=== PATIENT | male | born 1960 | race Caucasian/White ===

== ENCOUNTER 2016-07-23 14:19 | Inpatient (IN) | payer BC ==
[2016-07-23] MEDS ORDERED: IOPAMIDOL 300 (61%) 100 ML VIAL IV ONE (14:20)
[2016-07-23] MEDS ORDERED: ONDANSETRON 4 MG/2ML 2 ML VIAL ONE (14:54)
[2016-07-23] MEDS ORDERED: HYDROMORPHONE HCL 1 MG/ML SYRINGE ONE (14:54)
[2016-07-23] MEDS ORDERED: LACTATED RINGERS 1,000 ML ONE (14:54)
[2016-07-23 15:07] LABS: ABSOLUTE NEUTROPHIL COUNT 10.7 K/mm3 (1.8-7.7); BASO % 0.2 % (0.2-1.0); EOS # 0.1 (0.0-0.5); EOS % 0.4 % (0.9-2.9); HEMATOCRIT 44.1 % (32.0-52.0); HEMOGLOBIN 14.1 gm/l (14.0-18.0); IMM NEUT% 0.3 % (0-1); LYMPH # 1.7 (1.0-4.8); LYMPH % 12.9 % (15-45); MEAN CELL VOLUME 92.6 fl (80.0-94.0); MEAN CORPUSCULAR HEMOGLOBIN 29.6 pg (27.0-31.0); MONO # 0.9 (0.0-0.8); MONO % 6.5 % (4-12); NEUT % 79.7 % (43-75); PLATELET COUNT 194 K/mm3 (130-400); RED CELL DISTRIBUTION WIDTH 12.8 % (11.5-14.5)
[2016-07-23 15:08] LABS: URINE BILIRUBIN NEGATIVE (NEGATIVE); URINE BLOOD NEGATIVE (NEGATIVE); URINE GLUCOSE (UA) NEGATIVE (NEGATIVE); URINE LEUKOCYTE ESTERASE NEGATIVE (NEGATIVE); URINE NITRITE NEGATIVE (NEGATIVE); URINE PROTEIN NEGATIVE (NEGATIVE); URINE UROBILINOGEN NORMAL (0-1 mg/dl)
[2016-07-23 15:11] LABS: URINE APPEARANCE CLEAR; URINE COLOR YELLOW
[2016-07-23 15:16] LABS: ALB/GLOB RATIO 1.5 (>1.0); ALBUMIN 4.2 gm/dL (3.5-5.7)
--- NOTE | 2016-07-23 15:47 | CT ---
Exam Type: ABD/PELVIS W/ CON Date and Time: 07/23/2016 3:06 PM Clinical information: Lower abdominal pain. Comparison: None Procedure: Imaging device: Lookback Aquilion [address] scanner 1 mm axial images were obtained through the abdomen and pelvis. Stacked reconstructed 3, 4 and 5 mm images were photographed in the axial coronal and sagittal planes. No oral contrast was utilized for this examination. 100 ml of Isovue-300 was injected intravenously. Exam: with intravenous contrast. FINDINGS: Lung bases: Linear bibasilar atelectasis or scarring is present. No effusion or pneumothorax is seen. Liver: the liver is homogeneous with no discrete abnormality visualized. No definite findings of biliary dilatation are observed. Spleen: The spleen is homogeneous and does not appear to be enlarged. Gallbladder: Normal without enlargement or evidence of adjacent inflammatory changes. Pancreas: Normal without enlargement or evidence of adjacent inflammatory changes. Adrenal glands: There is a 2.6 cm right adrenal mass identified with an indeterminate Hounsfield attenuation value of 36 Hounsfield units. The left adrenal gland is unremarkable. Abdominal aorta: The aorta is of normal caliber and appears to be without significant atherosclerotic disease. Kidneys: There is evidence of a 4 mm right-sided intrarenal calculus. The kidneys appear to enhance symmetrically. No ureteral calculus or evidence of hydronephrosis is visualized. Bowel structures: Distal colonic diverticulosis is identified with prominent mesenteric inflammatory stranding adjacent to the midportion of the sigmoid colon most consistent with focal diverticulitis. There is a small focus of air within the mesentery of the central pelvis, seen on image 92 suggesting diverticular rupture. No focal fluid collection is currently visualized. No evidence of obstruction is seen. Appendix: The appendix is well-visualized and appears to be of normal caliber. No periappendiceal inflammatory changes or CT findings of appendicitis are currently observed. Bladder: There is circumferential thickening of the bladder wall which may reflect an underlying component of cystitis. Hernia: A fat filled umbilical hernia is present. Adenopathy: No significant enlarged adenopathy is visualized. Osseous structures: Lumbar degenerative changes are present, particularly at L4-5 and L5-S1. Pelvic structures: No discrete pelvic abnormalities are visualized in this examination. IMPRESSION: 1. Distal colonic diverticulosis with focal inflammatory stranding adjacent to the mid sigmoid colon most consistent with diverticulitis. A small focus of free air is seen within the central pelvic mesentery consistent with diverticular rupture. No current focal fluid collection is visualized. 2. A normal appearance of the appendix without CT evidence of appendicitis. 3. Circumferential thickening of the bladder wall which may reflect an underlying component of cystitis. 4. An indeterminate 2.6 cm right adrenal mass. Dedicated unenhanced imaging is recommended on a nonemergent basis. 5. Lumbar degenerative changes at L4-5 and L5-S1. 6. A 4 mm right-sided intrarenal calculus.
[2016-07-23] MEDS ORDERED: METRONIDAZOLE 500 MG/NS 100 ML 100 ML IV ONE (15:53)
[2016-07-23] MEDS ORDERED: CIPROFLOXACIN IV 400 MG 200 ML IV ONE (15:53)
[2016-07-23 16:22] VITALS: BMI 31.3
[2016-07-23] MEDS ORDERED: MENTHOL/CETYLPYRD 1 EACH LOZENGE PO PRN (16:57)
[2016-07-23] MEDS ORDERED: MAGNESIUM HYDROXIDE 30 ML UDCUP PO PRN (16:57)
[2016-07-23] MEDS ORDERED: SODIUM CHLORIDE 0.9% 100 ML IV PRN (16:57)
[2016-07-23] MEDS ORDERED: BISACODYL 10 MG SUP PR PRN (16:57)
[2016-07-23] MEDS ORDERED: ACETAMINOPHEN 325 MG TABLET PO PRN (16:57)
[2016-07-23] MEDS ORDERED: BISACODYL 5 MG TABLET.EC PO PRN (16:57)
[2016-07-23] MEDS ORDERED: BLISTEX LIPSTICK 1 EACH TP PRN (16:57)
[2016-07-23] MEDS ORDERED: PUMP TUBING ONE (17:16)
[2016-07-23] MEDS: SODIUM CHLORIDE 0.9% 1,000 ML IV SCH ×2 (17:17→23:54)
[2016-07-23] MEDS: MORPHINE SULFATE 2 MG/ML SYRINGE IV PRN (17:31)
[2016-07-23] MEDS: CIPROFLOXACIN IV 400 MG 400 MG in Premix (D5W) 200 ml 1 EACH IV SCH (17:33)
--- NOTE | 2016-07-23 17:54 | HP ---
RAJAT KAUR : 1960 DATE OF ADMISSION: July 23, 2016 CHIEF COMPLAINT: Abdominal pain. 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 He said he felt like he was being kicked in his lower abdomen. He developed some shortness of breath with that and some nausea, no vomiting. The pain progressed overnight, but as he had to make a delivery of bees, he continued working and he made his delivery of bees. He said the pain worsened while he was driving around on the [employer] and getting in and out of his truck. After the delivery, he presented to the emergency department. He did have the chills last night but no fevers, no vomiting. His bowel movement was difficult and that it required a lot of straining but no diarrhea or constipation. Then with today's pain, urination has been more difficult for him. Patient had a colonoscopy in July of 2015 that showed diverticulosis. REVIEW OF SYSTEMS: GENERAL: Chills. EENT: No congestion or sore throat. CARDIOVASCULAR: No chest pain or pressure. RESPIRATORY: Shortness of breath due to pain, no coughing. No dyspnea on exertion. ABDOMEN: Abdominal pain, nausea. No vomiting or diarrhea. GENITOURINARY: Difficulty initiating stream due to pain. No burning or urgency. MUSCULOSKELETAL: No muscle aches or pains. NEUROLOGIC: No headache or lightheadedness. He has tingling in his fingers. PAST MEDICAL HISTORY: Includes: 1. Hyperlipidemia. 2. Sleep apnea. 3. Gout. PAST SURGICAL HISTORY: None. ALLERGIES: NONE. MEDICATIONS: 1. Allopurinol. 2. Zetia. FAMILY MEDICAL HISTORY: Includes diabetes in his father. Depression and heart disease. 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 Occasional glass of wine. Denies any alcohol, tobacco or marijuana. PHYSICAL EXAM: GENERAL: He is alert and oriented, in no acute distress. Morbidly obese. VITAL SIGNS: Temperature 98.9, heart rate 89, blood pressure 120/65. He is saturating 95% on room air. HEENT: Normocephalic, atraumatic. There is no tenderness to palpation. Mucous membranes moist. Pupils are equal, round and reactive. His extraocular muscles are intact. There is no scleral icterus or conjunctival injection. NECK: Supple. Trachea midline. CARDIOVASCULAR: Regular. Positive S1, S2. Palpable pulses bilaterally radially and posterior tibial. No peripheral edema. RESPIRATORY: Clear to auscultation bilaterally. No rhonchi or wheezing. ABDOMEN: Distended, decreased bowel sounds. Tender lower quadrants. There is voluntary guarding. No rebound, no involuntary guarding. MUSCULOSKELETAL: Moving all extremities without difficulty. They are nontender. NEUROLOGIC: He is alert and oriented. LABORATORIES: Sodium 135, potassium 2.7, chloride 101, carbon dioxide 24, BUN 17, creatinine 1.0, glucose 227, total bilirubin 2.4, AST 23, ALT 29, alkaline phosphatase 60, lipase 35. White blood cell count of 13.4, hemoglobin 14.1, hematocrit of 44.1 with a platelet count of 194. Urinalysis was obtained. It was yellow, clear, and negative for protein, glucose, ketones, nitrites, leukocyte esterase. DIAGNOSTIC IMAGING: Abdomen and pelvis CT was obtained. It showed distal colonic diverticulosis with focal inflammatory stranding adjacent to mid sigmoid colon consistent with diverticulitis. Small focus of free air seen within central pelvic mesentery consistent with diverticular rupture. No current focal fluid collection visualized. Normal appearance of appendix. Circumferential thickening of bladder wall which may reflect underlying component of cystitis and an indeterminate 2.6 cm right adrenal mass. Dedicated imaging recommended. Lumbar degenerative changes at L4/L5, L5/S1. A 4 mm right-sided renal calculus. ASSESSMENT: A 55-year-old male with acute onset of abdominal pain and chills found to have diverticulitis with a small perforation on CT. PLAN: 1. Diverticulitis. Surgery consult has been placed and we will monitor overnight for worsening conditions which may warrant surgical investigation. He will be nothing by mouth receiving Flagyl and Cipro and IV fluid hydration. 2. Hyperlipidemia. We will hold his Zetia. 3. Gout. We will hold his allopurinol. Cc: Sharifa Bello M.D.
[2016-07-23] MEDS ORDERED: ONDANSETRON 4 MG/2ML 2 ML VIAL IV PRN (21:00)
[2016-07-23] MEDS ORDERED: CIPROFLOXACIN 500 MG TABLET PO SCH (21:00)
[2016-07-23] MEDS: DOCUSATE SODIUM 100 MG CAPSULE PO SCH (22:03)
[2016-07-24] MEDS: METRONIDAZOLE 500 MG/NS 100 ML 500 MG in Premix (NS) 100 ml 1 EACH IV SCH ×3 (01:34→16:46)
[2016-07-24] MEDS: MORPHINE SULFATE 2 MG/ML SYRINGE IV PRN (01:39)
[2016-07-24] MEDS: SODIUM CHLORIDE 0.9% 1,000 ML IV SCH ×3 (06:15→20:10)
[2016-07-24 07:23] LABS: BASO # 0.1 K/mm3 (0.0-0.2); BASO % 0.4 % (0.2-1.0); EOS # 0.1 (0.0-0.5); EOS % 0.9 % (0.9-2.9); HEMATOCRIT 39.5 % (32.0-52.0); HEMOGLOBIN 12.4 gm/l (14.0-18.0); IMM NEUT% 0.3 % (0-1); LYMPH # 1.4 (1.0-4.8); LYMPH % 11.6 % (15-45); MEAN CORPUSCULAR HEMOGLOBIN 29.5 pg (27.0-31.0); MEAN CORPUSCULAR HGB CONC 31.4 g/dl (33.0-37.0); MEAN PLATELET VOLUME 10.1 fl (7.4-10.4); MONO # 1.2 (0.0-0.8); MONO % 9.9 % (4-12); NEUT % 76.9 % (43-75); PLATELET COUNT 158 K/mm3 (130-400); RED CELL DISTRIBUTION WIDTH 13.1 % (11.5-14.5)
[2016-07-24 07:39] LABS: ALB/GLOB RATIO 1.5 (>1.0); ALBUMIN 3.5 gm/dL (3.5-5.7); CALCIUM 8.2 mg/dL (8.6-10.3)
--- NOTE | 2016-07-24 07:58 | PDOC43 ---
- Subjective Chief Complaint: abdominal pain Patient awake, pain is improving. He does not want to move as his pain worsens. Denies shortness of breath, nausea Subjective: Reports Pain Tolerable, Reports Urinating Without Difficulty, Reports Abdominal Pain, Denies Tolerating Diet Well, Denies Adequate Oral Intake , Denies Shortness of Breath, Denies Cough, Denies Chest Pain, Denies Nausea, Denies Vomiting - Objective Vital Signs Temperature 99.1 F 07/24/16 07:08 Pulse Rate 90 07/24/16 07:08 Respiratory Rate 17 07/24/16 07:08 Blood Pressure 112/70 07/24/16 07:08 O2 Saturation by Pulse Oximetry 92 07/24/16 07:08 Oxygen Delivery Method Room Air Oxygen Flow Rate 0 Intake and Output 07/22/16 07/23/16 07/24/16 23:59 23:59 23:59 Intake Total 1882 Output Total 700 Balance 1182 General: Alert, Oriented x3, Cooperative, Other (morbidly obese), No Acute Distress HEENT: Atraumatic, PERRLA, EOMI, Mucous membr. moist/pink Lungs: Clear to Auscultation Bilaterally, Normal Air Movement Cardiovascular: Regular Rate and Rhythm, Normal S1, Normal S2 Abdomen: Soft, Tenderness, Mild Distention, Other (tender R quadrants with voluntary guarding. No longer volunatry guarding on left side), No Rigid, No Rebounding, No Involuntary Guarding Extremities: No Cyanosis, No Edema, No Tenderness Peripheral Pulses: Radial (L): 2+, Radial (R): 2+ Neurological: Normal Speech Psych/Mental Status: Normal Mood Laboratory 07/24/16 06:46 07/24/16 06:46 07/24/16 06:46 RBC 4.20 L MCHC 31.4 L Estimated GFR 100 H Calcium 8.2 L Total Bilirubin 2.7 H Total Protein 5.9 L Current Medications: Current meds reviewed in EMR. - Problems: Assessment/Plan (1) Diverticulitis of colon with perforation Status: AcuteAssessment/Plan: pain improving. Surgical consult. Continue IVF, Abx, currently NPO Leukocytosis improvement from 13.4-11.7 (2) Hyperlipidemia Qualifiers: Hyperlipidemia type: mixed hyperlipidemia Qualifier Code: (E78.2) Mixed hyperlipidemia Status: ChronicAssessment/Plan: holding medication (3) Hyperglycemia Status: AcuteAssessment/Plan: could be DM II previously undiagnosed or reactive to current process. Checking A1c Will monitor and treat as needed with sliding scale meal coverage. (4) Anemia Qualifiers: Anemia type: unspecified type Qualifier Code: (D64.9) Anemia, unspecified Status: AcuteAssessment/Plan: dilutional overnight, monitor for symptoms
[2016-07-24] MEDS: DOCUSATE SODIUM 100 MG CAPSULE PO SCH ×2 (08:47→20:10)
[2016-07-24 09:05] LABS: A1C-GLYCOHEMOGLOBIN 0.6 g/dl; HEMOGLOBIN-GLYCO 12.6 g/dl
--- NOTE | 2016-07-24 12:53 | CONS ---
RAJAT KAUR [id number] CHIEF COMPLAINT: Abdominal pain. HISTORY OF PRESENT ILLNESS: Rajat Kaur 55-year-old male who was seen in the hospital in consultation on 07/24/2016 at the request of Dr. Nahid Rodriguez. 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 He developed some nausea without vomiting. That night, he had some fever, and chills. He had never had symptoms like this before. He presented to the emergency room where he was diagnosed with acute diverticulitis with some possible microperforation. He was admitted to the Hospitalist service and consultation with surgery was requested. He has had a colonoscopy with Dr. Delgado in July of 2015. He was noted to have diverticulosis at that time. He has never had an episode of diverticulitis before. He has never had history of intestinal bleeding before. PAST MEDICAL HISTORY: 1. He had an episode in the past where he was admitted to [facility] with severe septicemia. He is in the hospital for 2 to 3 months. He had chest tubes. He had some fasciotomies on his hand. It is not clear the etiology of that. 2. In addition, he has a history of hyperlipidemia. 3. Sleep apnea. 4. Gout. PAST SURGICAL HISTORY: No major abdominal surgeries. CURRENT MEDICATION: 1. Allopurinol. 2. Zetia. ALLERGIES: NONE KNOW. FAMILY HISTORY: Diabetes in his dad, depression and heart disease as well. Mom had issues with diverticulitis. SOCIAL HISTORY: He has an occasional glass of wine. He denies alcohol, tobacco, or drug use. REVIEW OF SYSTEMS: Constitutional: Chills. Eyes: No complaints. Ears, nose, throat: No complaints. Cardiac: No complaints. Pulmonary: No complaints. Gastrointestinal: As above. Genitourinary: Some pain with urination, no burning. Musculoskeletal: No complaints. Neurologic: No complaints. Endocrine: No complaints. Hematologic: No complaints. Psychiatric: No complaints. PHYSICAL EXAMINATION: VITAL SIGNS: Temperature of 99.1. Pulse is 90. Blood pressure is 112/70. Respiratory rate is 17. O2 saturation is 92% on room air. GENERAL: He is awake, alert, and appears in no acute distress. HEENT: Head is atraumatic, normocephalic. Sclera is nonicteric. Oropharynx without exudate, or erythema. NECK: Supple without lymphadenopathy, or thyromegaly. LUNGS: Clear to auscultation. Normal respiratory effort. CARDIAC: Regular rate and rhythm. No murmurs heard. ABDOMEN: Obese, soft, mildly distended. He has tenderness in the right lower quadrants. He does not display rebound tenderness. He may have some mild involuntary guarding present. No masses are palpable. No organomegaly appreciated. He reports overall his abdominal exam is significantly better than it was last night. EXTREMITIES: Without cyanosis, clubbing or edema. NEUROLOGIC: He is alert and oriented. Sensation grossly intact at all extremities. PSYCHIATRIC: Shows no signs of anxiety, or depression. He appears able to make informed medical decisions. LABORATORY EXAM: Sodium is 134, potassium 3.8, chloride 104, carbon dioxide is 25. BUN is 14, creatinine 0.8, glucose is 139. Calcium is 8.2, total bilirubin 2.7, AST is 25. ALT is 37. Alkaline phosphatase is 56. His albumin is 3.5. White blood cell count is 11.7 down from 13.4. Hemoglobin is 12.4. Platelets are 158. Urinalysis is essentially normal. DIAGNOSTIC IMAGING: CT scan was reviewed. There is clearly sigmoid diverticulitis. There are a couple of spots of air that are difficult to attribute to a clear diverticula. There is most likely some degree of microperforation. No abscess is seen. ASSESSMENT: 1. Acute sigmoid diverticulitis with microperforation. 2. Obesity. 3. Ill-defined history of septicemia. 4. Hyperlipidemia. 5. Gout. PLAN: At present I do not see need for surgical intervention. We will continue with intravenous antibiotics. I will let him have some liquids today. We will follow clinical exam. As long as he continues to improve, we will consider discharge on oral antibiotics. We have talked about the treatment of acute diverticulitis. With a single episode of diverticulitis, we can make the case for continued observation. If he is having recurrent bouts of this, then we should consider elective surgical resection. We discussed the risk of recurring bouts of diverticulitis leading to perforation and peritonitis. The patient expressed understanding and is agreeable to the plan. I have encouraged him to get up and walk to avoid atelectasis, pneumonia, and deep venous thrombosis. Surgery will follow along with the Hospitalist service. Cc: Sharifa Bello MD SAVANNAH/shalom
[2016-07-24] MEDS: CIPROFLOXACIN IV 400 MG 400 MG in Premix (D5W) 200 ml 1 EACH IV SCH (17:26)
[2016-07-25] MEDS: METRONIDAZOLE 500 MG/NS 100 ML 500 MG in Premix (NS) 100 ml 1 EACH IV SCH ×2 (00:31→08:51)
[2016-07-25] MEDS: SODIUM CHLORIDE 0.9% 1,000 ML IV SCH ×2 (02:38→09:31)
[2016-07-25 07:10] LABS: HEMATOCRIT 38.5 % (32.0-52.0); HEMOGLOBIN 12.4 gm/l (14.0-18.0); MEAN CORPUSCULAR HGB CONC 32.2 g/dl (33.0-37.0); RED CELL DISTRIBUTION WIDTH 12.9 % (11.5-14.5)
--- NOTE | 2016-07-25 07:26 | PDOC43 ---
- Subjective Subjective: Reports Pain Tolerable, Reports Bowel Movement, Denies Nausea - Objective Vital Signs Temperature 98.8 F 07/25/16 02:04 Pulse Rate 91 07/25/16 02:04 Respiratory Rate 18 07/25/16 04:22 Blood Pressure 121/66 07/25/16 02:04 O2 Saturation by Pulse Oximetry 95 07/25/16 02:04 Oxygen Delivery Method Room Air Oxygen Flow Rate 0 Laboratory 07/25/16 07:00 07/25/16 07/24/16 07/24/16 07:00 20:49 17:55 RBC 4.14 L MCHC 32.2 L Estimated GFR POC Capillary Glucose 107 H 104 H Hemoglobin A1c Calcium Total Bilirubin Total Protein 07/24/16 07/24/16 07/23/16 11:28 06:46 20:45 RBC 4.20 L MCHC 31.4 L Estimated GFR 100 H POC Capillary Glucose 123 H Hemoglobin A1c 6.4 H Calcium 8.2 L Total Bilirubin 2.7 H Total Protein 5.9 L Active Medication Orders Category Date Time Status Acetaminophen [Tylenol] Med 07/23/16 16:57 Active 650 mg PO Q6H PRN Bisacodyl [Dulcolax] Med 07/23/16 16:57 Active 10 mg CO DAILY PRN Bisacodyl [Dulcolax] Med 07/23/16 16:57 Active 5 mg PO DAILY PRN Ciprofloxacin IV 400 mg [Cipro IV 400 mg] 400 mg Med 07/23/16 17:30 Active Premix (D5W) 200 ml 1 each IV Q24H Docusate Sodium [Colace] Med 07/23/16 21:00 Active 100 mg PO BID Lip Felton [Blistex] Med 07/23/16 16:57 Active 1 each TP PRN PRN Magnesium Hydroxide [Milk of Magnesia] Med 07/23/16 16:57 Active 30 ml PO DAILY PRN Menthol/Cetylpyridinium [Cepacol] Med 07/23/16 16:57 Active 1 each PO PRN PRN Metronidazole 500 mg/Ns 100 ml [Flagyl 500 mg IV] 500 Med 07/24/16 01:00 Active mg Premix (NS) 100 ml 1 each IV Q8HR Morphine Sulfate Med 07/23/16 17:22 Active 2 mg IV Q2H PRN Ondansetron 4 mg/2ml Vial [Zofran] Med 07/23/16 21:00 Active 4 mg IV Q6H PRN Sodium Chloride 0.9% 1,000 ml Med 07/23/16 17:00 Active IV 150 mls/hr Sodium Chloride 0.9% 100 ml Med 07/23/16 16:57 Active IV PRN Sodium Chloride 0.9% Flush [Normal Saline 10ml Flush] Med 07/23/16 16:22 Active 10 ml IV PRN PRN Sodium Chloride 0.9% Flush [Normal Saline 10ml Flush] Med 07/23/16 17:00 Active 10 ml IV Q8HR Intake and Output 07/24/16 07/25/16 07/26/16 06:59 06:59 06:59 Intake Total 1882 5624 Output Total 700 2050 Balance 1182 3574 General: Alert, Oriented x3 Abdomen: Soft, Tenderness (Much better. Achy only.), Non-Distended, Other (Has a rectus diastasis. No clear hernia) Psych/Mental Status: Normal Affect - Assessment/ Plan (1) Diverticulitis of colon with perforation Status: AcuteAssessment/ Plan: No fever. Normal WBC. Start full liquids. Home on PO antibiotics if tolerating. Follow up with PCP. Follow up with me if having multiple attacks. We discussed diet. Avoid raw vegetable nuts and seeds for a couple of weeks. The high fiber diet.
[2016-07-25 07:29] LABS: CALCIUM 8.3 mg/dL (8.6-10.3)
[2016-07-25] MEDS: DOCUSATE SODIUM 100 MG CAPSULE PO SCH (08:51)
--- NOTE | 2016-07-25 13:40 | PDOC43 ---
- Subjective Chief Complaint: abdominal pain - diverticulitis with microperforation Patient reports feeling better. Walked well, no problems. Had some looser stools yesterday. Had lunch, and reports abdomen feeling fine. Would be interesting in going home if possible. Patient also noted some toe tenderness, has been off allopurinol just recently due to illness. - Objective Vital Signs Temperature 98.6 F 07/25/16 08:12 Pulse Rate 89 07/25/16 08:12 Respiratory Rate 16 07/25/16 08:29 Blood Pressure 135/89 07/25/16 08:12 O2 Saturation by Pulse Oximetry 96 07/25/16 08:12 Oxygen Delivery Method Room Air Oxygen Flow Rate 0 Vital Signs Last 12 Hours Temp Pulse Resp BP Pulse Ox 07/25/16 08:29 16 07/25/16 08:12 98.6 F 89 16 135/89 96 07/25/16 04:22 18 07/25/16 02:04 98.8 F 91 18 121/66 95 Intake and Output 07/23/16 07/24/16 07/25/16 23:59 23:59 23:59 Intake Total 5441 4397 Output Total 2100 950 Balance 3341 3447 General: Alert, Cooperative, No Mild Distress Lungs: Clear to Auscultation Bilaterally, Normal Air Movement Cardiovascular: Regular Rate and Rhythm Abdomen: Soft, Normal Bowel Sounds, No Tenderness, No Rebounding, No Involuntary Guarding Extremities: Other (L hallux with mild erythema, sl puffiness.), No Edema Skin: Normal Color Neurological: Normal Speech Psych/Mental Status: Normal Mood Laboratory 07/25/16 07:00 07/25/16 07:00 07/25/16 07/25/16 07/24/16 07:43 07:00 20:49 RBC 4.14 L MCHC 32.2 L Estimated GFR 116 H POC Capillary Glucose 113 H 107 H Calcium 8.3 L 07/24/16 17:55 RBC MCHC Estimated GFR POC Capillary Glucose 104 H Calcium Current Medications: Current meds reviewed in EMR. Active Medications Acetaminophen (Tylenol) 650 mg PO Q6H PRN PRN Reason: Pain or Temperature > 100.5 F Benzocaine/Menthol (Cepacol) 1 each PO PRN PRN PRN Reason: Sore Throat Bisacodyl (Dulcolax) 10 mg DC DAILY PRN PRN Reason: Constipation Bisacodyl (Dulcolax) 5 mg PO DAILY PRN PRN Reason: Constipation Docusate Sodium (Colace) 100 mg PO BID [facility] Last Admin: 07/25/16 08:51 Dose: Not Given Metronidazole 500 mg/ Sodium (Chloride) 100 mls @ 200 mls/hr IV Q8HR [facility] Last Admin: 07/25/16 08:51 Dose: 200 mls/hr Sodium Chloride (Sodium Chloride 0.9%) 100 mls @ 25 mls/hr IV PRN PRN PRN Reason: Flush Sodium Chloride (Sodium Chloride 0.9%) 1,000 mls @ 150 mls/hr IV .Q6H40M [facility] Last Admin: 07/25/16 09:31 Dose: 150 mls/hr Ciprofloxacin/Dextrose 400 mg/ (Dextrose) 200 mls @ 200 mls/hr IV Q24H [facility] Last Admin: 07/24/16 17:26 Dose: 200 mls/hr Magnesium Hydroxide (Milk Of Magnesia) 30 ml PO DAILY PRN PRN Reason: Constipation Morphine Sulfate (Morphine Sulfate) 2 mg IV Q2H PRN PRN Reason: Pain Last Admin: 07/24/16 01:39 Dose: 2 mg Ondansetron HCl (Zofran) 4 mg IV Q6H PRN PRN Reason: Nausea/Vomiting Petrolatum/Paraffin/Mineral Oil (Blistex) 1 each TP PRN PRN PRN Reason: Dry and/or chapped lips Sodium Chloride (Normal Saline 10ml Flush) 10 ml IV Q8HR [facility] Last Admin: 07/25/16 08:52 Dose: Not Given Sodium Chloride (Normal Saline 10ml Flush) 10 ml IV PRN PRN Last Admin: 07/23/16 17:18 Dose: 10 ml - Problems: Assessment/Plan (1) Diverticulitis of colon with perforation Status: AcuteAssessment/Plan: pain improving. Surgical consult appreciated. Advanced diet, plan PO abx. Leukocytosis improvement from 13.4-11.7->9.8 (2) Hyperglycemia Status: AcuteAssessment/Plan: BG improved. could be DM II previously undiagnosed or reactive to current process. A1c - 6.4 , suggesting hyperglycemia not to dx of DM. Discussed with patient, he is familiar with DM, as his father has this. Encouraged activity, weight loss. (3) Gout Qualifiers: Gout site: toe Gout etiology: unspecified cause Laterality: left Chronicity: acute Qualifier Code: (M10.9) Gout, unspecified Status: SuspectedAssessment/Plan: Patient with hx of such. Consider for NSAID, caution with resumption of allopurinol. VTE Prophylaxis: ambulatory, anticipate DC to home today .
[2016-07-25] MEDS ORDERED: IBUPROFEN 600 MG TABLET PO PRN (13:41)
[2016-07-25] MEDS ORDERED: HYDROCODONE/ACETAMINOPHEN 5/325MG TABLET PO PRN (13:43)
[2016-07-25 15:02] VITALS: BP 129/88
[2016-07-25] MEDS ORDERED: IOPAMIDOL 300 (61%) 100 ML VIAL IV ONE (16:34)
--- NOTE | 2016-07-25 16:51 | CT ---
ABD W/WO CON HISTORY: Right adrenal mass COMPARISONS: CT abdomen and pelvis with contrast 07/23/2016 TECHNIQUE: Noncontrast 3 mm images of the abdomen were obtained. Following the uneventful IV administration of 100 mL of Isovue-300 3 mm images of the abdomen were then obtained. Delayed imaging was then performed in 3 mm collimation. Sagittal and coronal reformations with high resolution lung algorithm images were also obtained this time. DLP: 2221.0 FINDINGS: The patient's 2.6 cm right adrenal mass is again identified. Based on its washout characteristics this is indeterminant though there are areas of low density suggestive of adenoma or lipid poor adenoma. The remainder of the abdomen is unchanged from prior study. No abnormality is identified at the lung bases. There is no pericardial effusion. Osseous structures are intact. IMPRESSION: Indeterminant adrenal lesion though there are some features suggestive of adenoma as detailed above. MRI with gradient echo clinical shift imaging could be helpful in further evaluation. Otherwise follow-up CT would be recommended. Other findings as above.
[2016-07-25] MEDS ORDERED: METRONIDAZOLE 500 MG TABLET PO SCH (17:00)
[2016-07-25] MEDS ORDERED: CIPROFLOXACIN 500 MG TABLET PO SCH (17:19)
--- NOTE | 2016-07-25 20:13 | DS ---
RAJAT KAUR [id number] DATE OF ADMISSION: July 23, 2016 DATE OF DISCHARGE: July 25, 2016 DISCHARGE DIAGNOSES: Are: 1. Diverticulitis with microperforation, felt to be nonsurgical. 2. History of gout with possible flare occurring left hallux. 3. Hyperglycemia with an A1c of 6.4. 4. Morbid obesity with a BMI of 31.3. 5. History of sleep apnea. 6. History of hyperlipidemia. 7. A 2.6 cm right adrenal mass. Dedicated unenhanced imaging recommended on non-emergent basis. 8. A 4 mm right sided intrarenal calculus. REASON FOR ADMISSION: The patient is a 55-year-old male who noted some abdominal pain developing the day before admission on July 22, 2016. 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 He was noted to have a white blood cell count of 13.4, hemoglobin 14.1, platelets 194. His chemistry profile showed sodium 135, potassium 3.7, chloride 101, BUN 17, creatinine 1.0, glucose 227, bilirubin 2.4, and calcium 9.0, AST 23, ALT 29, lipase 35, Urinalysis was unremarkable. He also underwent a CT scan of the abdomen and pelvis showing distal colonic diverticulosis with focal inflammatory stranding adjacent to the mid sigmoid colon most consistent with diverticulitis. A small focus of free air seen within central pelvic mesentery consistent with diverticular rupture. No current fluid collection identified. Normal appearance of appendix without evidence of appendicitis. Circumferentially thickening of the bladder which may reflect an underlying component of cystitis, indeterminate right adrenal mass 2.6 cm. Dedicated unenhanced imaging is recommended on a non emergent basis, lumbar degenerative changes L4/5 and L5/S1. And right sided 4 mm intrarenal calculus. Patient was treated with IV metronidazole and ciprofloxacin and had gratifying improvement in symptoms. He remained afebrile the entire hospitalization. Vital signs remained stable. Consultation with Dr. Erick Ferreira was performed due to perforation seen. Dr. Ferreira felt that this was acute sigmoid diverticulitis with microperforation without need for surgical intervention. He continued to have improvement and by July 25, 2016, he was advanced to a regular diet and is anticipated to be switched to oral antibiotics and discharged to home on a later today, July 25, 2016. He was otherwise feeling well except he did note some discomfort in the left hallux and noted a slight amount of redness similar to his previous episodes of gout. DISCHARGE MEDICATIONS: Are anticipated to be: 1. Allopurinol 100 mg orally daily. 2. Ciprofloxacin 500 mg orally twice daily times two weeks. 3. Zetia 10 mg daily. 4. [place] 5/325 one orally every four hours as needed. 5. Ibuprofen 400 mg orally every six hours as needed. 6. Metronidazole 500 mg orally four times daily times 14 days. He is advised to avoid alcohol with this. 7. Vitamin 3D 2000 units orally daily. DIET: Regular but Dr. Ferreira advised avoiding seeds and other restrictions for diverticulitis. With is borderline elevated Hemoglobin A1c, he is recommended to work on weight loss and activity. INSTRUCTIONS: He is to return if having worsening abdominal pain, inability to keep his medicines down or a substantial change in status or having marked diarrhea. FOLLOW UP: He is requested to follow up with Dr. Ferreira if having ongoing symptoms and recurrent diverticulitis. He has an appointment with Coleman Madrigal on August 03, 2016 at 10:00 a.m. CONDITION ON DISCHARGE: Is much improved. Cc: Brennan Huang M.D.
== END 2016-07-25 18:19 | disposition home or self-care (01) | DRG 392 ==
LOC: ED 14:19 → OBSVTOIN 15:50 → INTOOBSV 15:50 → MS 15:50
PROVIDERS: ADMIT Family Medicine; ATTEND Surgery
DX: K57.20 Diverticulitis of large intestine with perforation and abscess without bleeding (principal); M10.9 Gout, unspecified; R73.9 Hyperglycemia, unspecified; E66.9 Obesity, unspecified; Z68.31 Body mass index [BMI] 31.0-31.9, adult; G47.30 Sleep apnea, unspecified; E78.5 Hyperlipidemia, unspecified; N20.0 Calculus of kidney; D64.9 Anemia, unspecified